=== PATIENT | female | born 1950 | race Hispanic/Latino ===

== ENCOUNTER → 2017-12-06 | Outpatient (CLI) | payer MEDICARE ==
[~2017-12-06] MED LIST: IOHEXOL-350 50ML VIAL IV ONE
== END | disposition home or self-care (01) ==
LOC: RAH 12:57
PROVIDERS: ATTEND Family Medicine
DX: J32.0 Chronic maxillary sinusitis (principal); G31.9 Degenerative disease of nervous system, unspecified
CPT/HCPCS: 70470; Q9967

== ENCOUNTER → 2018-12-28 | Outpatient (CLI) | payer MEDICARE | END | disposition home or self-care (01) | LOC: OIH 12:55 | PROVIDERS: ATTEND Internal Medicine | DX: M06.4 Inflammatory polyarthropathy (principal); M51.36 Other intervertebral disc degeneration, lumbar region; M43.8X4 Other specified deforming dorsopathies, thoracic region | CPT/HCPCS: 72040; 72070; 72100; 73120 ==

== ENCOUNTER → 2019-04-17 | Outpatient (CLI) | payer MEDICARE | END | disposition home or self-care (01) | LOC: RAH 13:03 | PROVIDERS: ATTEND Internal Medicine | DX: M80.80XA Other osteoporosis with current pathological fracture, unspecified site, initial encounter for fracture (principal); M19.012 Primary osteoarthritis, left shoulder; M19.011 Primary osteoarthritis, right shoulder; M17.0 Bilateral primary osteoarthritis of knee | CPT/HCPCS: 78306; A9503 ==

== ENCOUNTER → 2020-03-26 | Outpatient (CLI) | payer OTHER, MEDICARE | END | disposition home or self-care (01) | LOC: SHCH 08:59 | PROVIDERS: ATTEND Internal Medicine | DX: M25.572 Pain in left ankle and joints of left foot (principal); M25.571 Pain in right ankle and joints of right foot | CPT/HCPCS: 93922 ==

== ENCOUNTER → 2024-06-29 | Outpatient (CLI) | payer OTHER, MEDICARE ==
--- NOTE | 2024-06-30 16:03 | HMCSR ---
APPROVED REPORT Bilateral Lower Extremity Venous Study for DVT., Venous Competence. Indications i20.09, r06.02, r94.31 Vein Imaging CFV (R): Normal flow, augmentation and compression. No evidence of DVT. 8.3mm 1267ms of DVR. SFJ (R): Normal flow, augmentation and compression. No evidence of DVT. FEM (R): Normal flow, augmentation and compression. No evidence of DVT. POP (R): Normal flow, augmentation and compression. No evidence of DVT. DFV (R): Normal flow, augmentation and compression. No evidence of DVT. PTV (R): Normal flow, augmentation and compression. No evidence of DVT. Peroneals (R): Normal flow, augmentation and compression. No evidence of DVT. CFV (L): Normal flow, augmentation and compression. No evidence of DVT. 11.4mm 1011ms of DVR. SFJ (L): Normal flow, augmentation and compression. No evidence of DVT. FEM (L): Normal flow, augmentation and compression. No evidence of DVT. POP (L): Normal flow, augmentation and compression. No evidence of DVT. DFV (L): Normal flow, augmentation and compression. No evidence of DVT. PTV (L): Normal flow, augmentation and compression. No evidence of DVT. Peroneals (L): Normal flow, augmentation and compression. No evidence of DVT. Technologist Impression Deep veins of bilateral lower extremities appear patent and compressible without thrombus. Signifiant Deep Vein Reflux seen. Superficial venous insufficiency seen in the RGSV RGSV junction 3.7mm 794ms thigh 2.3mm 0.0ms knee 1.9mm 0.0ms calf 2.0mm 0.0ms RSSV prox 2.0mm 211ms mid 1.5mm 228ms LGSV junction 3.7mm 367ms thigh 1.6mm 194ms knee 2.0mm 0.0ms calf 1.8mm 0.0ms LSSV prox 2.3mm 167ms mid 1.6mm 0.0ms Conclusion Signifiant Deep Vein Reflux seen. Superficial venous insufficiency seen in the RGSV No DVT Consider formal venography with IVUS if clinically indicated Conclusion Signifiant Deep Vein Reflux seen. Superficial venous insufficiency seen in the RGSV No DVT Consider formal venography with IVUS if clinically indicated
--- NOTE | 2024-06-30 16:03 | HMCSR ---
APPROVED REPORT Laterality: Bilateral Indications i20.9, r06.02, r94.31 VELOCITY AND DOPPLER WAVEFORM ANALYSIS MINESWEEPING OFFICER (R) 156.0cm/sec, Triphasic, MINESWEEPING OFFICER (L) 140.8cm/sec, Biphasic, Prof Fem Art. (R) 93.3cm/sec, Triphasic, Prof Fem Art. (L) 107.7cm/sec, Biphasic, Fem Art Prox. (R) 132.5cm/sec, Triphasic, Fem Art Prox. (L) 120.1cm/sec, Biphasic, Fem Art Mid. (R) 100.8cm/sec, Triphasic, Fem Art Mid. (L) 106.5cm/sec, Biphasic, Fem Art Dist (R) 110.0cm/sec, Triphasic, Fem Art Dist. (L) 85.7cm/sec, Biphasic, Pop Art(AK) (R) 82.5cm/sec, Biphasic, Pop Art (AK) (L) 86.1cm/sec, Biphasic, Pop Art (Fossa)(R) 98.4cm/sec, Biphasic, Pop Art (Fossa) (L) 79.0cm/sec, Biphasic, Pop Art(BK) (R) 98.4cm/sec, Biphasic, Pop Art (BK) (L) 67.3cm/sec, Biphasic, MICROBIOLOGY ANALYST Dist. (R) 133.9cm/sec, Biphasic, MICROBIOLOGY ANALYST Dist. (L) 135.4cm/sec, Biphasic, Per Art Dist. (R) 46.2cm/sec, Biphasic, Per Art Dist. (L) 40.7cm/sec, Biphasic, GWENDOLYN Dist. (R) 48.3cm/sec, Biphasic, GWENDOLYN Dist. (L) 49.0cm/sec, Biphasic, Technologist Impression No evidence of significant arterial insufficiency of bilateral lower extremities. Multiphasic waveforms seen in the bilateral lower extremities. No evidence of significant arterial insufficiency of bilateral lower extremities.
== END | disposition home or self-care (01) ==
LOC: SHCH 12:55
PROVIDERS: ATTEND Internal Medicine Cardiovascular Disease
DX: I08.3 Combined rheumatic disorders of mitral, aortic and tricuspid valves (principal); I87.2 Venous insufficiency (chronic) (peripheral); I70.203 Unspecified atherosclerosis of native arteries of extremities, bilateral legs; I87.1 Compression of vein; I20.9 Angina pectoris, unspecified; R06.02 Shortness of breath; R94.31 Abnormal electrocardiogram [ECG] [EKG]
CPT/HCPCS: 93306; 93925; 93970

== ENCOUNTER → 2024-07-03 | Outpatient (CLI) | payer OTHER, MEDICARE ==
[2024-07-03] MEDS: REGADENOSON 0.4 MG/5 ML PF SYG IVP ONE (09:14)
--- NOTE | 2024-07-04 08:37 | HMCSR ---
APPROVED REPORT Height: 4 ft 10in Weight: 147 lbs TEST INDICATIONS ANGINA PECTORIS The imaging protocol used to acquire images was Rest Tc-99m/stress Tc-99m 1 day Consent: The procedure was explained and understood by the patient. Informerd consent was witnessed Roni Childs RN First, low dose rest was performed then high dose stress. RESTING DATA: The resting ekg shows: NSR Rest SPECT myocardial perfusion imaging was performed in supine position 63 minutes following the int ravenous injection of 11.5 mCi of Tc-99 Sestamibi. Time of rest injection: 08:00: Date: 07/03/2024 Time of rest imagin:03: Date: 07/03/2024 PHARMACOLOGIC STRESS: Pharmacologic stress test was performed by injecting regadenoson 0.4 mg IV push followed by the intra venous injection of 32.6 mCi of Tc-99 Sestamibi. Time of stress injection: 09:30: Date: 07/03/2024 Time of stress imagin:50: Date: 07/03/2024 Heart Rate at time of stress injection: 55 bpm. Gated Stress SPECT was performed 80 minutes after stress injection. The images were gated to evaluate regional wall motion and calculate left ventricular ejection fracti on. STRESS DETAILS Reason for Termination: Infusion complete Stress Symptoms: Dyspnea Max HR Achieved: 88 bpm % of APMHR Achieved: 60 Max Blood Pressure: 151/71 mmHg Stress ECG: NSR Study quality was good. Lung uptake was Normal. Artifact: breast artifact LEFT VENTRICLE Size: The left ventricular size is normal. Systolic Function:The left ventricular systolic function is normal. The left ventricular ejection fraction was calculated to be 80%.TID = . LV PERFUSION There is decreased radiotracer uptake noted at the apex more prominent on the stress images compared to the rest images consistent with mild reversible ischemia Conclusion Mildly abnormal myocardial perfusion scan for mild apical reversible ischemia Soft tissue artifact noted Hyperdynamic ejection fraction greater than 80% Low risk scan Clinical correlation recommended
== END | disposition home or self-care (01) ==
LOC: SHCH 07:40
PROVIDERS: ATTEND Internal Medicine Cardiovascular Disease
DX: I25.9 Chronic ischemic heart disease, unspecified (principal); I20.9 Angina pectoris, unspecified; R06.00 Dyspnea, unspecified; R06.02 Shortness of breath; R94.31 Abnormal electrocardiogram [ECG] [EKG]
CPT/HCPCS: 78452; 93017; J2785; A9500 ×2